=== PATIENT | male | born 1975 | race Two or more races ===

== ENCOUNTER 2024-09-19 00:02 | Emergency (ER) | payer OTHER, SELFPAY ==
[2024-09-19 00:03] VITALS: BMI 27.9
[2024-09-19 00:14] VITALS: BP 129/77; PULSE 76; RESP 19; TEMP 36.9; O2SAT 96
--- NOTE | 2024-09-19 01:12 | EDNOTE_ITS ---
ED Animal Bite RME/HPI General Chief Complaint: Animal Bite Stated Complaint: DOG BITE R SECOND FINGER Time Seen by Provider: 09/19/24 00:22 Arrival date/time: 09/19/24 00:02 RME / HPI RME / HPI narrative: 48-year-old male presents to the ED with a complaint of a dog bite wound/laceration to his right index finger, palmar surface. Patient states this was his own dog, a beagle, whom he was attempting to get a hamburger away from him when the dog bit him on the right index finger. The dog is up-to-date on his immunizations. The patient's last tetanus is unknown, but feels it is greater than at least 7 or 8 years. He denies any numbness or tingling distally. He denies any functional deficit. Related Data Previous Rx's ?Medication ?Instructions ?Recorded fluconazole 200 mg tablet 400 mg (2 x 200 mg) PO QDAY 09/24/23 blastomycosis #10 tabs amoxicillin 875 mg-potassium 1 tab PO BID 7 days #14 t abs 09/19/24 clavulanate 125 mg tablet Allergies Allergy/AdvReac Type Severity Reaction Status Date / Time No Known Drug Allergies Allergy Verified 09/19/24 00:06 Review of Systems Review of Systems Systems Reviewed: All systems reviewed, normal except as documented Past Medical History Past Medical History CARDIAC: Negative Cardiac Disorders or Congestive Heart Failure RESPIRATORY: Negative Chronic Obstructive Pulmonary Disease (COPD) or Asthma GENITOURINARY: Negative Renal Disease ENDOCRINE: Negative Diabetes Mellitus Type 1 or Diabetes Mellitus Type 2 HEMATOLOGIC: Negative Sickle Cell Disease Social History SMOKING STATUS: Never smoker ED Exam Narrative Physical exam: A&O, afebrile and non-toxic appearing 48-year-old male, no acute distress. Lungs are clear, RRR, Abdomen is non-distended. Right index finger, palmar surface with approximate 2 cm irregular laceration between the proximal and middle phalanx. Good flexion and extension of the index finger without pain. CMS intact distally. Moves all extremities well. Course Course Course Narrative: Tdap was updated. Patient's wound was anesthetized with lidocaine 1% without epinephrine. The wound was then cleansed and irrigated with saline. 5-0 nylon sutures x 2 placed for loose closure. Quality Measures none Orders Category Date Time Status TDap [Obtain Tdap Consent] X1 Care 09/19/24 01:11 Active Lidocaine 1% 20 ml [Xylocaine 1% 20 ML] Med 09/19/24 01:22 Discontinued 20 ml INFL X1 ONE TET,DIP/PERT AC (Adult)-Tdap [Boostrix Adult (Tdap) Med 09/19/24 01:11 Discontinued Vacc] 0.5 ml IMI .ONCE ONE Vital Signs Vital signs: Vital Signs Temperature 98.5 F 09/19/24 00:14 Pulse Rate 76 09/19/24 00:14 Respiratory Rate 19 09/19/24 00:14 Blood Pressure 129/77 09/19/24 00:14 Pulse Oximetry (%) 96 09/19/24 00:14 Oxygen Delivery Method Room Air 09/19/24 00:14 Animal Bite MDM Narrative MDM Narrative:: Symptoms, exam and diagnostic studies are consistent with: Dog bite (own immunized pet), right index finger. Patient was discharged home in stable condition. Patient/family advised to follow-up with their PCP in 24-48 hours. Encouraged to return to the ED for any new or worsening symptoms. Patient data External records reviewed:: None Clinical information provided by:: patient Social determinants that could affect healthcare access:: none Patient has the following chronic illnesses:: N/A How is presenting disease/condition affected by chronic disease/condition?: uneffected by Evaluation data The following diagnostics were reviewed and interpreted by me:: other (specify) (N/A) Lab and/or radiology exams considered but not ordered:: N/A Interpretation Summary: N/A Medications / Prescriptions Medications or Prescriptions considered but not ordered:: N/A Medication administrations:: Medication Administration History Discontinued Medications Diphtheria/Tetanus/Acell Pertussis (Diphth,Pertuss(Acell),Tet Vac 0.5 Ml Syr- Adult) 0.5 ml IMi .ONCE ONE Stop: 09/19/24 01:12 Last Admin: 09/19/24 01:57 Dose: 0.5 ml Documented By: Lidocaine HCl (Lidocaine Hcl 1% 20 Ml Vial) 20 ml INFL X1 ONE Stop: 09/19/24 01:23 Last Admin: 09/19/24 02:02 Dose: 20 ml Documented By: As noted above Consultations Consultation(s) initiated? (list below): No Diagnosis Differential diagnosis animal bite: dog bite Most likely diagnosis given after review of the tests above:: Dog bite right index finger. Admission Indicated Admission indicated?: not indicated Explain why admission is indicated or not indicated:: Patient is stable for discharge Admission Request Was there a request for admission?: No Admission Attestation Admission request attestation: N/A Disposition Plan Disposition Plan: Discharge Discharge Attestation Discharge Attestation: The patient and all family members were given an opportunity to ask questions and understood the discharge instructions. Discharge instructions specifically effects, indications for sooner follow up or return to the emergency department, and the expected course of current diagnosis. Patient condition: Stable Discharge Plan Plan Patient Disposition: HOME (Self Care) Discharge Disposition comment: Stable and improved Prescriptions/Referrals Prescriptions/Med Rec: New amoxicillin-pot clavulanate 875-125 mg tablet 1 tab PO BID 7 Days Qty: 14 0RF No Action fluconazole 200 mg tablet 400 mg PO QDAY Qty: 10 0RF Referrals: No Primary/Family,Physician [Primary Care Provider] - In 1 week Problem List Clinical Impression: Dog bite Patient/Caregiver Discharge Instructions Education Materials: ED Dog Bite Additional Instructions: Take the antibiotics as prescribed. Keep the wound clean and dry. Do not expose it to excessive amounts of moisture. Watch for any signs of infection which would indicate clued redness, swelling, increased pain, or cloudy yellow drainage. Suture removal in 7 to 10 days. Follow-up with your primary care physician in 24 to 48 hours. Return to the ED for any new or worsening symptoms. Print Language: Ukrainian Stand Alone Forms: [employer] Award Info., Patient Portal Info Letter PA/ALINA Supervising Physician PA/ALINA Supervising Physician: Dr. Hernandez
[2024-09-19] MEDS: DIPHTH,PERTUSS(ACELL),TET VAC 0.5 ML SYR- ADULT IMi (01:57)
[2024-09-19] MEDS: LIDOCAINE HCL 1% 20 ML VIAL INFL (02:02)
== END 2024-09-19 02:40 | disposition home or self-care (01) ==
PROVIDERS: Emergency Provider Emergency Medicine
DX: S61.210A Laceration without foreign body of right index finger without damage to nail, initial encounter (principal); W54.0XXA Bitten by dog, initial encounter; Z23 Encounter for immunization
CPT/HCPCS: 12001; 90471; 90715; 99282; J3490

== ENCOUNTER → 2025-02-08 | Outpatient (CLI) | payer OTHER, SELFPAY ==
[2025-02-08 09:04] LABS: Misc Send Out* See Sep Rpt
[2025-02-08 09:33] LABS: Collection Type, Urine Clean Catch; Misc Send Out* See Sep Rpt
[2025-02-08 10:16] LABS: Basophils # (Auto) 0.1 Thou/mm3 (0.0-0.2); Basophils % (Auto) 1 % (0-2.5); Eosinophils # (Auto) 0.3 Thou/mm3 (0.0-0.5); Eosinophils % (Auto) 3 % (0-10); Hematocrit 44.8 % (41.0-53.0); Hemoglobin 15.0 g/dL (13.5-16.0); Immature Granulocytes Auto 0.02 Thou/mm3 (0.00-0.00); Lymphocytes # (Auto) 2.0 Thou/mm3 (1.0-4.8); Lymphocytes % (Auto) 27 % (10-50); Mean Corpuscular HGB Conc 33.5 g/dl (31.0-37.0); Mean Corpuscular Hemoglobin 30.3 pg (25.0-35.0); Mean Corpuscular Volume 91 fL (80-100); Monocytes # (Auto) 0.4 Thou/mm3 (0.0-0.8); Monocytes % (Auto) 6 % (0-12); Neutrophils # (Auto) 4.5 Thou/mm3 (1.8-7.7); Neutrophils % (Auto) 62 % (37-80); Nucleated Red Blood Cell # 0.00 Thou/mm3 (0.00-0.00); Nucleated Red Blood Cell % 0 /100 WBC (0); Platelet Count 287 Thou/mm3 (140-440); RDW Standard Deviation 45.4 fL (35.1-43.9); Red Blood Count 4.95 Miln/mm3 (4.50-5.90); White Blood Count 7.3 Thou/mm3 (3.8-10.6)
[2025-02-08 10:16] LABS: Bilirubin,Urine Negative (Negative); Blood,Urine Negative (Negative); Clarity,Urine Clear (Clear/Hazy); Color,Urine Lt-Yellow (Lt Yel-Yel); Culture Indicated,Urine Not Indicated; Glucose, Urine Negative (Negative); Ketones,Urine Negative (Negative); Leukocyte Esterase,Urine Negative (Negative); Nitrite,Urine Negative (Negative); PH,Urine 6.0 (5.0-7.0); Protein,Urine Negative (Neg - Trace); RBC,Urine 1 /hpf (0-3); Specific Gravity,Urine 1.026 (1.001-1.035); Squamous Epithelial Cell,Urine < 1 /hpf (0-5); Urobilinogen,Urine Negative mg/dL (0.0-1.0); WBC,Urine < 1 /hpf (0-5)
[2025-02-08 10:27] LABS: Glucose Estimated Average 108 mg/dL (80-131); Hemoglobin A1C 5.4 % Hgb (4.8-6.0)
[2025-02-08 10:39] LABS: Alanine Aminotransferase 17 U/L (10-49); Albumin, Serum 4.7 gm/dL (3.5-5.0); Albumin/Globulin Ratio 1.8 (1.2-2.2); Alkaline Phosphatase 59 U/L (46-116); Anion Gap 11 (7-16); Aspartate Amino Transferase 22 U/L (0-34); BUN/Creatinine Ratio 22 Ratio (12-20); Bilirubin,Total 0.6 mg/dL (0.3-1.2); Blood Urea Nitrogen 26 mg/dL (9-23); Calcium 9.5 mg/dL (8.3-10.6); Calcium (Corrected) 9.5 mg/dL (8.5-10.1); Carbon Dioxide 26.5 mMol/L (20.0-31.0); Cardiac Risk Estimate 4.4 RATIO (4.0-6.7); Chloride 107 mMol/L (98-107); Cholesterol 210 mg/dL (132-200); Creatinine (Component) 1.2 mg/dL (0.6-1.3); Globulin 2.6 gm/dL (2.3-3.5); Glucose 104 mg/dL (74-106); HDL Cholesterol 48 mg/dL (40-60); LDL Cholesterol,Calculated 144 mg/dL (0-130); Osmolality,Calculated 291 (275-295); Potassium 4.9 mMol/L (3.4-5.1); Sodium 144 mMol/L (136-145); Total Protein 7.3 gm/dL (5.7-8.2); Triglycerides 88 mg/dL (30-150); eGFR > 60 See Note
[2025-02-08 11:16] LABS: Folate 14.97 ng/mL (>5.38); Hepatitis C Antibody Non Reactive (Non React); Vitamin B12 583 pg/mL (211-911); Vitamin D 25 Hydroxy Total 28.0 ng/mL (7.3-40.2)
[2025-02-08 11:24] LABS: Syphilis Nonreactive (Nonreactive)
[2025-02-08 12:03] LABS: HIV (1&2) Antibody Rapid Non-Reactive
[2025-02-08 13:35] LABS: Chlamydia trachomatis PCR Negative (Not Detect); Neisseria Gonorrhoeae DNA PCR Negative (Not Detect); Trichomonas Negative (Negative)
[2025-02-08 14:03] LABS: Cocci Serology, IgM Negative (Negative)
[2025-02-10 12:43] LABS: Cocci Serology, IgG Negative (Negative)
[2025-02-21 07:16] LABS: Estradiol, Ultrasensitive* 26 pg/mL (< OR = 29); Testosterone, Free,Dialysis 110.7 pg/mL (35.0-155.0); Testosterone, Total, Dialysis 605 ng/dL (250-1100)
== END | disposition home or self-care (01) ==
LOC: COPL 08:27
PROVIDERS: PCP Family Medicine; Referring Provider Nurse Practitioner; Visit Provider Nurse Practitioner
DX: E78.5 Hyperlipidemia, unspecified (principal); B40.3 Cutaneous blastomycosis; B38.0 Acute pulmonary coccidioidomycosis; Z13.1 Encounter for screening for diabetes mellitus; R53.83 Other fatigue; Z11.3 Encounter for screening for infections with a predominantly sexual mode of transmission
CPT/HCPCS: 36415; 80053; 80061; 81001; 82306; 82607; 82670; 82746; 83036; 84402; 84403; 85025; 86331; 86612; 86635; 86703; 86780; 86803; 87449; 87491; 87591; 87661